=== PATIENT | female | born 1985 | race Caucasian/White ===

== ENCOUNTER 2018-02-24 12:05 | Emergency (ER) | payer OTHER ==
[~2018-02-24] VITALS: Ht 170.2 cm; Wt 74.8 kg
[~2018-02-24 12:05] MED LIST: ENDOCET 5-3251 EACH PO; HEPARIN SO5000 UNITS SC; IBUPROFEN800 MG PO; LOVENOX40 MG/0.4 SC; PRENATAL TABLE1 EAC3 PO
[2018-02-24 13:14] LABS: HEMATOCRIT 42.1 % (36.0-46.0); HEMOGLOBIN 14.9 G/DL (11.9-15.5); MCH 31.2 PG (29.0-34.0); MCHC 35.4 G/DL (30.0-36.0); MCV 88.1 FL (83-99); PLATELET COUNT 217 K/uL (156-360); RBC DIS.WIDTH-CV 12.6 % (11.8-14.6); RBC DIS.WIDTH-SD 40.9 % (39-53); RED BLOOD COUNT 4.78 M/uL (3.80-5.20); WHITE BLOOD COUNT 12.8 K/uL (4.1-10.2)
[2018-02-24 13:24] LABS: CHLORIDE 103 mEq/L (99-109); SODIUM 139 mEq/L (136-147)
[2018-02-24 13:25] LABS: GLUCOSE 82 mg/dL (70-99)
[2018-02-24 13:29] LABS: CREATININE 0.8 mg/dL (0.6-1.3); GFR ESTIMATE (CALCULATED) > 59 mL/min/
[2018-02-24 13:30] LABS: UREA NITROGEN (BUN) 11 mg/dL (9-23)
[2018-02-24 13:37] LABS: QUANTITATIVE HCG < 4.0 MIU/ML
[2018-02-24] MEDS ORDERED: KEFLEX500 MG PO (14:42)
[2018-02-24] MEDS ORDERED: MOTRIN800 MG PO (14:42)
[2018-02-24] MEDS ORDERED: CLEOCIN300 MG PO (14:42)
[2018-02-24 16:06] VITALS: BP 116/76
== END 2018-02-24 16:06 | disposition home or self-care (01) ==
LOC: EME 12:05
PROVIDERS: Nurse Practitioner Family
DX: L03.211 Cellulitis of face (principal); K04.7 Periapical abscess without sinus; F17.200 Nicotine dependence, unspecified, uncomplicated; D68.51 Activated protein C resistance
CPT/HCPCS: 70491; 80048; 84702; 85027; 87040; 99281; 99284; J7030